=== PATIENT | female | born 1975 | race Caucasian/White ===

== ENCOUNTER 2020-06-02 09:29 | Observation (INO) ==
[2020-06-02] MEDS ORDERED: 0.9 % Sodium Chloride 1,000 ML IVC ONE (09:56)
[2020-06-02 11:48] LABS: Adenovirus Not Detected (Not Detect); Bordetella Pertussis Not Detected (Not Detect); Chlamydophila pneumoniae Not Detected (Not Detect); Coronavirus 229E Not Detected (Not Detect); Coronavirus HKU1 Not Detected (Not Detect); Coronavirus NL63 Not Detected (Not Detect); Coronavirus OC43 Not Detected (Not Detect); Human Metapneumovirus Not Detected (Not Detect); Human Rhinovirus/Enterovirus Not Detected (Not Detect); Influenza A Subtype 2009 H1 Not Detected (Not Detect); Influenza B Not Detected (Not Detect); Mycoplasma pneumoniae Not Detected (Not Detect); Parainfluenza Virus 1 Not Detected (Not Detect); Parainfluenza Virus 2 Not Detected (Not Detect); Parainfluenza Virus 3 Not Detected (Not Detect); Parainfluenza Virus 4 Not Detected (Not Detect); Respiratory Syncytial Virus Not Detected (Not Detect); SARS-CoV-2 Not Detected (Not Detect)
[2020-06-02] MEDS ORDERED: Ketorolac 15 MG/ML VIAL IVP ONE (13:08)
[2020-06-02] MEDS ORDERED: Ringers Solution, Lactated 1,000 ML IVC SCH (13:15)
[2020-06-02] MEDS ORDERED: *HR* FentaNYL (PF) 100 MCG/2 ML VIAL ONE (16:36)
[2020-06-02] MEDS ORDERED: *HR* Propofol 200 MG/20 ML VIAL IVP ONE (16:36)
[2020-06-02] MEDS ORDERED: Dexamethasone 4 MG/ML VIAL ONE (16:37)
[2020-06-02] MEDS ORDERED: Ondansetron 4 MG/2 ML VIAL IVP PRN (16:37)
[2020-06-02] MEDS ORDERED: *HR* HYDROmorphone PF 0.5 MG/0.5 ML SYRINGE IVP PRN (16:37)
[2020-06-02] MEDS ORDERED: Lidocaine -MPF 2% 2 ML VIAL ONE (16:37)
[2020-06-02] MEDS ORDERED: *HR* Promethazine 25 MG/ML VIAL IVP PRN (16:37)
[2020-06-02] MEDS ORDERED: *HR* Rocuronium Bromide 50 MG/5 ML VIAL ONE ×2 (16:37→18:23)
[2020-06-02] MEDS ORDERED: *HR* Labetalol 20 MG/4 ML SYRINGE IVP PRN (16:37)
[2020-06-02] MEDS ORDERED: Lidocaine HCL 4 ML Topical Solution (Laryng-O-Jet Kit Sterile Pak) TP ONE (16:37)
[2020-06-02] MEDS ORDERED: Scopolamine Patch 1.5 MG PATCH.TD72 TD ONE (16:37)
[2020-06-02] MEDS ORDERED: cefOXitin 2,000 MG in Water for inj. (sterile) 20 ML IVP ONE (16:46)
[2020-06-02] MEDS ORDERED: Scopolamine Patch 1.5 MG PATCH.TD72 ONE (16:59)
[2020-06-02] MEDS ORDERED: Acetaminophen IV 1,000 MG/100 ML INFUS..BTL ONE (16:59)
[2020-06-02] MEDS ORDERED: CefOXitin 2,000 MG VIAL ONE (17:18)
[2020-06-02] MEDS ORDERED: Albumin Human 5% 12.5 GM/250 ML IV.SOLN ONE (18:13)
[2020-06-02] MEDS ORDERED: Ibuprofen 400 MG TABLET PO PRN (21:14)
[2020-06-02] MEDS ORDERED: Acetaminophen 325 MG TABLET PO PRN (21:15)
[2020-06-02] MEDS ORDERED: *HR* OxyCODONE ER (12 HR) 10 MG TABLET PO SCH (22:00)
[2020-06-02 23:37] VITALS: BP 112/73
== END 2020-06-03 00:30 | disposition home or self-care (01) ==
LOC: 1NENUOBS 09:29 → EMEROOARM 09:29 → UNDODISOB 12:18 → 1NENUOBS 12:21
PROVIDERS: ADMIT Student in an Organized Health Care Education/Training Program; ATTEND Student in an Organized Health Care Education/Training Program